=== PATIENT | male | born 1995 | race Caucasian/White ===

== ENCOUNTER 2017-12-26 19:05 | Emergency (ER) | payer OTHER ==
[2017-12-26] MEDS: ACETAMINOPHEN 325 MG TAB PO (21:19)
[2017-12-26] MEDS: DIPHTH/TET/ACEL PERTUSS (ADULT) 0.5 ML VIAL IM* (21:52)
== END 2017-12-26 22:09 | disposition home or self-care (01) ==
LOC: FTE 19:05
DX: S01.01XA Laceration without foreign body of scalp, initial encounter (principal); W21.05XA Struck by basketball, initial encounter; Y92.310 Basketball court as the place of occurrence of the external cause; Z23 Encounter for immunization
CPT/HCPCS: 12002; 90471; 90715; 99283-25